=== PATIENT | male | born 1995 | race Two or more races ===

== ENCOUNTER 2017-01-13 15:09 | Emergency (ER) | payer SELFPAY ==
[~2017-01-13] VITALS: Ht 162.6 cm; Wt 63.5 kg
--- NOTE | 2017-01-13 15:25 | Emergency Room Report ---
History of Present Illness General Chief Complaint: Multiple Trauma/Fall Source: Patient Present Illness HPI The patient presents with left shoulder pain. He was walking his dog after drinking alcohol and fell. He hit his shoulder and also his left face. Denies any loss of consciousness. He's not taken any medication for this. This pain is in his shoulder at this time 7/10 - sharp aching, worse with movement.. No numbness. The pain radiates somewhat down to his elbow area. He feels better when he holds his arm without moving it. Denies any shortness of breath cough. R handed. Unknown tetanus (denies having one in past). Allergies: Coded Allergies: No Known Allergies (Unverified , 01/13/17) Patient History Past Medical History: see triage record Social History: Reports: alcohol use Reviewed Nursing Documentation: PMH: Agreed, PSxH: Agreed Nursing Documentation-PMH Hx Asthma: Yes Review of Systems Constitutional: Denies: fever Eye: Denies: acuity changes Respiratory: Denies: cough, shortness of breath Cardiovascular: Denies: chest pain Gastrointestinal: Denies: nausea, vomiting Musculoskeletal: Reports: see HPI Skin: Reports: rash, lesions Neurological: Reports: see HPI, headache Hematologic/Lymphatic: Denies: easy bleeding, easy bruising Physical Exam Vital Signs Date Time Temp Pulse Resp B/P Pulse Ox O2 Delivery O2 Flow Rate FiO2 01/13/17 15:11 98.2 82 20 135/76 97 Room Air Sp02 EP Interpretation: reviewed, normal General Appearance: well appearing, no apparent distress Head: other - abrasion L Eyes: bilateral eye normal inspection, bilateral eye PERRL ENT: hearing grossly normal, normal voice Neck: full range of motion, supple Respiratory: lungs clear, normal breath sounds, no respiratory distress, speaking full sentences, other - chest/shoulder tend Cardiovascular #1: regular rate, rhythm Cardiovascular #2: 2+ radial (L) - cap fill normal Gastrointestinal: normal inspection, non tender Musculoskeletal: back normal, digits/nails normal, gait/station normal, other - tender L shoulder/clavicle with decreased ROM. Clavicle tender and some deformity Neurologic: alert, oriented x3, motor strength/tone normal, DTRs symmetric, sensory intact, cerebellar normal, normal gait, speech normal Psychiatric: mood/affect normal Skin: abrasions - l forehead Medical Decision Making Diagnostic Impression: Primary Impression: Fracture, clavicle closed, shaft Qualified Codes: S42.022A - Displaced fracture of shaft of left clavicle, initial encounter for closed fracture ER Course Patient presents after a fall last night. He has pain in his L shoulder. Differential includes fractured clavicle, fractured shoulder, contusion and sprain. Exam is consistent with a fracture. Patient will be given Motrin and an x-ray will be obtained. Distal clavicle fx, displaced. Sling is applied by the tech. Position and neurovascular checked by me is excellent. Pain improved. Patient is stable for outpatient observation and treatment. I suggested he go to an orthopedics pediatric physician and consider having surgery performed. Other X-Ray Diagnostic Results Other X-Ray Diagnostic Results : X-Ray ordered: L shoulder # of Views/Limited Vs Complete: 3 View Indication: Pain EP Interpretation: Yes Interpretation: no dislocation, no soft tissue swelling, other - fx clavicle Impression: Other Interpreting ER Provider: Electronically signed by Jacob Alvarado MD Last Vital Signs Date Time Temp Pulse Resp B/P Pulse Ox O2 Delivery O2 Flow Rate FiO2 01/13/17 16:41 98.2 73 20 135/76 97 Room Air Status: improved Disposition: HOME, SELF-CARE Condition: Improved Scripts Tramadol Hcl* (ULTRAM*) 50 Mg Tablet 50 MG ORAL Q6H Y for For Pain, #6 TAB 0 Refills Prov: Jacob Alvarado M.D. 01/13/17 Ibuprofen* (MOTRIN*) 600 Mg Tablet 600 MG ORAL Q6H Y for For Pain, #20 TAB Prov: Jacob Alvarado M.D. 01/13/17 Jacob Alvarado M.D. Jan 13, 2017 15:25
[2017-01-13] MEDS ORDERED: Neosporin Oint Ud Pkt TOP ONE (15:30)
[2017-01-13] MEDS ORDERED: Tetanus/Diptheria/Pertussis Vaccine 0.5ml Syr IM ONE (15:30)
[2017-01-13] MEDS ORDERED: TRAMADOL HCL50 MG ORAL (16:05)
[2017-01-13] MEDS ORDERED: IBUPROFEN600 MG ORAL (16:05)
[2017-01-13 16:40] VITALS: BP 135/76
[2017-01-13 16:41] VITALS: BP 135/76
--- NOTE | 2017-01-15 08:44 | Diagnostic Imaging Report ---
Indication: Pain Findings: 3 views of the left shoulder were obtained. There is acute left distal clavicle fracture. The a.c. joint is only mildly distracted. The distal clavicle fracture is displaced slightly. Impression: Acute fracture of the distal left clavicle
== END 2017-01-13 16:45 | disposition home or self-care (01) ==
LOC: EMR 15:40
DX: S42.022A Displaced fracture of shaft of left clavicle, initial encounter for closed fracture (principal); W19.XXXA Unspecified fall, initial encounter; Y92.9 Unspecified place or not applicable; Z23 Encounter for immunization
CPT/HCPCS: 29240; 90471; 90715; 96372; 99284